=== PATIENT | female | born 1940 | race Caucasian/White ===

== ENCOUNTER → 2017-01-15 | Outpatient (CLI) | payer OTHER ==
[~2017-01-15] MED LIST: AMLODIPINE BESIL1 GM; ANXIETY; ASPIRIN; ASPIRIN EC81 M1; ASPIRIN81 M1 PO; BENAZEPRIL-HCT1 EAC1 PO; CALCIUM 600 W/V1 TA2 PO; CALCIUM1 TAB.CHEW; CELEXA10 MG PO; CELEXA20 MG PO; CHOLESTEROL MED; COQ-10200 MG PO; D3 DOTS2000 UNIT PO; LEVAQUIN250 MG PO; LEXAPRO PO; LIPITOR; LIPITOR20 MG PO; LOTENSIN HCT 201 TAB PO; LOTREL 10/20 MG1 CAP PO; LOTREL 5/10 MG1 CAP; MUCINEX DM1 TAB.SR .; MULTI-VITAMIN1 TAB; NORVASC10 MG PO; P MED; PRILOSEC20 MG; RANITIDINE HCL150 M1 PO; ZANTAC; ZYRTEC PO; ZYRTEC10 M2; [UNRECOGNIZED DRUG - OTHER]
--- NOTE | ~2017-01-15 | CT57 ---
[facility] A Service of [facility] & [facility] RADIOLOGY TEXT RESULTS PATIENT: CJ MUNSON LOCATION: [facility] : 39 UNIT #: [id number] AGE: [address]: Vahe Sow MD SEX: F ORDER DR: [id number] [place] [id number] O MR#: [id number] Acc #: [id number] NAME: CJ MUNSON : 1940 SEX: F STUDY DATE/TIME: 01/15/2017 11:10 UNIT: [facility] ROOM: STUDY DESCRIPTION: CT Chest Wo Cont Attending Physician: Vahe Sow M.D. Referring Physician: Vahe Sow M.D. Ordering Physician: Vahe Sow M.D. Primary Care Physician: Vahe Sow M.D. MEDICAL IMAGING REPORT This report is preliminary unless electronic signature is present. EXAM CT of the chest without contrast INDICATIONS 76-year-old female with coughing since August. Abnormal chest x-ray TECHNIQUE CT of the chest was performed without contrast. Coronal and sagittal reformatted images were obtained. This CT exam was performed with one or more of the following radiation dose reduction techniques: automatic exposure control, adjustment of mA and/or kV according to patient size, and iterative reconstruction. COMPARISON There are no comparison chest CTs available. FINDINGS There is some mild scarring and bronchiectasis in the base of the lower lobes. There is also some mild bronchiectasis and scarring within the right middle lobe and lingula. There is numerous tiny micronodules in the lungs. These are nonspecific and may be infectious or inflammatory. There are no prior chest CTs available. The thyroid gland is enlarged and contains multiple nodules. There is no evidence of lymphadenopathy or pleural effusion. Limited imaging of the upper abdomen is unremarkable. The bone windows are unremarkable. IMPRESSION 1. There is mild scarring and bronchiectasis within the lung bases. 2. There are scattered tiny micronodules in the lungs mainly in the periphery of the lungs. These are nonspecific and may be infectious or inflammatory. No prior chest CTs are available. Would suggest a followup chest CT in 6 months to document stability or clearing. 3. Enlarged thyroid gland with multiple nodules. Correlation can be STS. [facility] A Service of [facility] & [facility] RADIOLOGY TEXT RESULTS PATIENT: CJ MUNSON LOCATION: [facility] : 39 UNIT #: [id number] AGE: [address]: Vahe Sow MD SEX: F ORDER DR: performed with thyroid ultrasound if the patient is not already had a thyroid ultrasound. Dictated by... Davi Paulson M.D. THIS IS AN ELECTRONICALLY VERIFIED REPORT Davi Paulson M.D. at 01/17/2017 11:31 AM ARS/to TD: 01/16/2017 15:21 JOB #: [id number] MEDICAL IMAGING REPORT Page 1 of 1
== END | disposition home or self-care (01) ==
LOC: SCT 10:41
DX: R05 Cough (principal); R93.8 Abnormal findings on diagnostic imaging of other specified body structures; J47.9 Bronchiectasis, uncomplicated; J98.4 Other disorders of lung; R91.8 Other nonspecific abnormal finding of lung field; E04.2 Nontoxic multinodular goiter
CPT/HCPCS: 71250

== ENCOUNTER → 2017-01-29 | Outpatient (CLI) | payer OTHER ==
--- NOTE | ~2017-01-29 | US128 ---
[id number] [address] [address] [id number] O MR#: [id number] Acc #: [id number] NAME: CJ MUNSON : 1940 SEX: F STUDY DATE/TIME: 01/29/2017 15:25 UNIT: [facility] ROOM: STUDY DESCRIPTION: Thyroid Attending Physician: Vahe Sow M.D. Referring Physician: Vahe Sow M.D. Ordering Physician: Vahe Sow M.D. Primary Care Physician: Vahe Sow M.D. MEDICAL IMAGING REPORT This report is preliminary unless electronic signature is present. EXAM Thyroid ultrasound HISTORY Thyromegaly and thyroid nodule on CT chest 01/15/2017. FINDINGS Ultrasound examination of the thyroid gland demonstrates diffusely heterogeneous thyroid parenchymal echotexture bilaterally. Multiple complex bilateral thyroid nodules, throughout both thyroid lobes. The largest nodules on the right include a 15 mm solid heterogeneous partly hyperechoic nodule in the upper pole, and a 27 mm mixed solid and cystic nodule in the lower pole. Largest nodules on the left include a 5.0 cm predominately solid, partly cystic nodule occupying the majority of the kpn-qu-nftyy thyroid lobe, a 17 mm nodule in the lower pole and an 18 mm nodule in the upper pole, and an 11 mm nodule at the junction of the left thyroid lobe and thyroid isthmus. These correspond to the heterogeneous diffusely enlarged thyroid gland noted on CT chest 01/15/2017. The right thyroid lobe measures 5.9 cm in length and the left thyroid lobe measures 8.3 cm in length. IMPRESSION Extensive bilateral thyroid nodules throughout both thyroid lobes, corresponding to the diffusely enlarged heterogeneous multinodular thyroid gland on CT 01/15/2017. The largest nodule in the left thyroid lobe occupies the majority of the mid and lower pole and measures 5.0 cm in maximal dimension and is predominately solid with small cystic components. The largest nodule on the right measures 2.7 cm in the lower pole and includes both solid and cystic components. Consider ultrasound-guided fine needle aspiration of the dominant nodules. Dictated by... Johan Hernandez M.D. THIS IS AN ELECTRONICALLY VERIFIED REPORT Johan Hernandez M.D. at 01/30/2017 2:35 PM SANNA/consuelo TD: 01/29/2017 22:51 JOB #: [id number] MEDICAL IMAGING REPORT Page 1 of 1
== END | disposition home or self-care (01) ==
LOC: SGUS 15:14
DX: E01.0 Iodine-deficiency related diffuse (endemic) goiter (principal); E04.2 Nontoxic multinodular goiter
CPT/HCPCS: 76536

== ENCOUNTER → 2017-04-02 | Outpatient (CLI) | payer OTHER ==
--- NOTE | ~2017-04-02 | CT57 ---
[facility] A Service of [facility] & [facility] RADIOLOGY TEXT RESULTS PATIENT: CJ MUNSON LOCATION: [facility] : 39 UNIT #: [id number] AGE: [address]: Rambo Hendrickson MD SEX: F ORDER DR: [id number] [address] [address] [id number] O MR#: [id number] Acc #: [id number] NAME: CJ MUNSON : 1940 SEX: F STUDY DATE/TIME: 04/02/2017 12:32 UNIT: [facility] ROOM: STUDY DESCRIPTION: CT Chest Wo Cont Attending Physician: Rambo Hendrickson M.D. Referring Physician: Rambo Hendrickson M.D. Ordering Physician: Rambo Hendrickson M.D. Primary Care Physician: Vahe Sow M.D. MEDICAL IMAGING REPORT This report is preliminary unless electronic signature is present. EXAM High-resolution CT chest without contrast. DATE 04/02/2017 HISTORY 76-year-old female with bronchiectasis. Patient states cough since August 2016 but is getting better. Followup. COMPARISON CT chest without contrast, 01/15/2017. PROCEDURE 1 mm axial images performed at similar increments through the chest without contrast per high-resolution protocol. Prone imaging is performed through the lung bases. Expiratory phase imaging was obtained at the level of the arch, jose, and bases. Additional 5 mm helical images were obtained to account for respiratory motion degradation. This CT exam was performed with one or more of the following radiation dose reduction techniques: automatic exposure control, adjustment of mA and/or kV according to patient size, and iterative reconstruction. FINDINGS Extensive tiny micronodular densities are scattered throughout both lungs, greatest peripherally, and greatest in the ckx-ei-vctfs lung zones. The greatest preponderance of these micronodules is demonstrated within the left lower lobe. Some of these have a tree-in-bud configuration, and are strongly favored to represent benign infectious-inflammatory etiology, likely related to small airways disease. Cylindrical type bronchiectasis is demonstrated predominately within the bilateral lower lobes medially, right middle lobe, and lingula. Mild bronchial wall thickening is STS. [facility] A Service of [facility] RADIOLOGY TEXT RESULTS PATIENT: CJ MUNSON LOCATION: [facility] : 39 UNIT #: [id number] AGE: [address]: Rambo Hendrickson MD SEX: F ORDER DR: demonstrated within the lingula. No dense lung consolidations are seen. There is no evidence of interstitial fibrosis or usual interstitial pneumonia. No honeycombing features are identified. Benign calcified granulomatous changes are also demonstrated within the bilateral lower lobes and within the left hilum. No pathologic adenopathy is identified. No pericardial effusion or pleural effusion. Mild left anterior descending coronary artier calcification. Normal caliber of the thoracic aorta. Heterogeneous low-density nodularity within both thyroid lobes with asymmetric enlarged left thyroid lobe, similar to prior exam. Coarse calcifications are seen within the right thyroid lobe. No evidence of air trapping upon prone imaging or expiratory phase imaging. Dense calcific atherosclerosis is seen near the origin of the SMA. Included upper abdominal organs are within normal limits. IMPRESSION 1. Extensive micronodularity seen throughout both lungs, greatest peripherally in the enm-ar-hhoti lung zones. These findings do not appear appreciably changed compared to 01/15/2017. Benign etiologies such as chronic small airways infectious-inflammatory change is suspected. Certainly, granulomatous disease is atypical, mycobacterial infection or fungal disease can be included in the differential. 2. No definite new suspicious pulmonary nodules are identified on today's exam. 3. Stable cylindrical bronchiectatic type changes within the right middle lobe, lingula, bilateral lower lobes without evidence of central mucous plugging. 4. No evidence of UIP. 5. Benign granulomatous changes within the chest. 6. Mild coronary artery calcifications. 7. Heterogeneous multinodular enlargement of the thyroid gland, left greater than right. Consider correlation with thyroid function test and/or thyroid ultrasound if it would aid in clinical management. It is recognized the patient has had a recent thyroid ultrasound from 01/29/2017. Please correlate with that report. Dictated by... Padmini Mendenhall M.D. THIS IS AN ELECTRONICALLY VERIFIED REPORT [facility] A Service of [facility] RADIOLOGY TEXT RESULTS PATIENT: CJ MUNSON LOCATION: [facility] : 39 UNIT #: [id number] AGE: [address]: Rambo Hendrickson MD SEX: F ORDER DR: Padmini Mendenhall M.D. at 04/04/2017 5:28 PM BINDU/anna marie TD: 04/04/2017 12:43 JOB #: [id number] MEDICAL IMAGING REPORT Page 1 of 1
== END | disposition home or self-care (01) ==
LOC: SCT 12:22
DX: J47.9 Bronchiectasis, uncomplicated (principal); R91.8 Other nonspecific abnormal finding of lung field; I25.10 Atherosclerotic heart disease of native coronary artery without angina pectoris; E04.2 Nontoxic multinodular goiter
CPT/HCPCS: 71250

== ENCOUNTER 2017-06-04 09:10 | Emergency (ER) | payer OTHER | END 2017-06-04 10:02 | disposition home or self-care (01) | LOC: SED 09:10 | DX: L03.116 Cellulitis of left lower limb (principal); I10 Essential (primary) hypertension; Z79.899 Other long term (current) drug therapy | CPT/HCPCS: 99283 ==